=== PATIENT | male | born 1980 | race Caucasian/White ===

== ENCOUNTER 2020-07-06 12:49 | Emergency (ER) | payer OTHER | END 2020-07-06 14:30 | LOC: ED 12:49 | DX: Z02.89 Encounter for other administrative examinations (principal) ==

== ENCOUNTER 2020-07-06 12:49 | Emergency (ER) | payer MEDICAID ==
[~2020-07-06] VITALS: Ht 172.7 cm; Wt 90.7 kg
[2020-07-06 12:58] VITALS: Ht 172.7 cm; Wt 90.7 kg
[2020-07-06 14:30] VITALS: BP 136/81
== END 2020-07-06 14:30 ==
LOC: ED 12:49
DX: S80.212A Abrasion, left knee, initial encounter (principal); M25.531 Pain in right wrist; F17.210 Nicotine dependence, cigarettes, uncomplicated; X58.XXXA Exposure to other specified factors, initial encounter; Y93.89 Activity, other specified; Y92.89 Other specified places as the place of occurrence of the external cause; Y99.8 Other external cause status
CPT/HCPCS: 82962